=== PATIENT | female | born 2000 | race Two or more races ===

== ENCOUNTER 2022-12-05 21:45 | Emergency (ER) | payer OTHER ==
[~2022-12-05] VITALS: Ht 160 cm; Wt 72.6 kg
[2022-12-05 22:04] VITALS: BP_SYST 124
[2022-12-05] MEDS ORDERED: MORPHINE 4 MG INJ. 4 MG/ML VIAL IM ONE (23:00)
[2022-12-05] MEDS ORDERED: ACET-2634 PO (23:02)
[2022-12-05] MEDS ORDERED: IBUP-1971 PO (23:02)
[2022-12-05 23:16] VITALS: BP_SYST 122
== END 2022-12-05 23:16 | disposition home or self-care (01) ==
LOC: SED 21:45
DX: S60.522A Blister (nonthermal) of left hand, initial encounter (principal); Z79.899 Other long term (current) drug therapy; X12.XXXA Contact with other hot fluids, initial encounter; Y93.89 Activity, other specified; Y92.89 Other specified places as the place of occurrence of the external cause; Y99.8 Other external cause status
CPT/HCPCS: 99283; 96372; J2270